=== PATIENT | female | born 1945 | race Two or more races ===

== ENCOUNTER → 2017-03-10 | Outpatient (CLI) | payer OTHER ==
[2015-03-30 11:28] VITALS: BP 140/82
[~2017-03-10] MED LIST: AMOX1TAB61 PO; LISI1TAB3 PO; LISI2.5T PO; METF500T4 PO; PIRO20CA2 PO; SIMV10TA3 PO; SIMV40TA3 PO
--- NOTE | 2017-03-10 10:16 | RAD ---
DATE: March 10, 2017 EXAM: DIGITAL SCREEN BILAT W/CAD HISTORY: Routine screening. COMPARISON: None. Baseline in a 71-year-old. TECHNIQUE: 2D digital CC and MLO views of each breast were obtained. This study was interpreted with the benefit of Computerized Aided Detection (CAD). FINDINGS: The breast parenchyma demonstrates scattered fibroglandular densities, category B. There is no worrisome mass or area of architectural distortion. There are scattered benign-appearing calcifications. Patient has a port on the right, reported history of lymphoma. IMPRESSION: Benign findings. BI-RADS CATEGORY: 2 BENIGN FINDING RECOMMENDED FOLLOW-UP: 12M 12 MONTH FOLLOW-UP PQRS compliance statement: Patient information was entered into a reminder system with a target due date for the next mammogram. Mammography is a sensitive method for finding small breast cancers, but it does not detect them all and is not a substitute for careful clinical examination. A negative mammogram does not negate a clinically suspicious finding and should not result in delay in biopsying a clinically suspicious abnormality. "Our facility is accredited by the [employer] Mammography Program."
== END | disposition home or self-care (01) ==
LOC: MAMMO 08:51
PROVIDERS: ATTEND Family Medicine
DX: Z12.31 Encounter for screening mammogram for malignant neoplasm of breast (principal)
CPT/HCPCS: G0202; 77067

== ENCOUNTER → 2018-03-11 | Outpatient (CLI) | payer OTHER ==
[2015-03-30 11:28] VITALS: BP 140/82
[~2018-03-11] MED LIST changes: +METF500T16 PO; -METF500T4 PO
--- NOTE | 2018-03-11 11:46 | RAD ---
DATE: March 11, 2018 EXAM: MAMMO REYNA SCREENING BILATERAL HISTORY: Screening study. COMPARISON: March 10, 2017 This study was interpreted with the benefit of Computerized Aided Detection (CAD). 2-D digital mammographic views of both breasts were performed in the CC and MLO projections. 3-D digital tomosynthesis images of both breasts were performed in the CC and MLO projections and reviewed on a computer workstation. FINDINGS: Breast Density: SCATTERED The breast parenchyma shows scattered fibroglandular densities. Breast parenchyma level B.. There are no dominant suspicious masses, suspicious microcalcifications or evidence of architectural distortion. IMPRESSION: No mammographic indicators for malignancy BI-RADS CATEGORY: 1 NEGATIVE RECOMMENDED FOLLOW-UP: 12M 12 MONTH FOLLOW-UP PQRS compliance statement: Patient information was entered into a reminder system with a target due date March 12, 2019 for the next mammogram. Mammography is a sensitive method for finding small breast cancers, but it does not detect them all and is not a substitute for careful clinical examination. A negative mammogram does not negate a clinically suspicious finding and should not result in delay in biopsying a clinically suspicious abnormality. "Our facility is accredited by the [employer] Mammography [employer]." The patient's breast density may affect the ability of mammography to detect breast cancer. There are 4 categories of breast density, A, B, C and D. Breast density A means that most of the breast tissue is replaced with adipose tissue and therefore is not dense. Breast density B means that the breast tissue is mildly dense and scattered. Breast density C means that the breast tissue is heterogeneously dense. Breast density D means that the breast tissue is very dense. Breast densities especially C and D may decrease the sensitivity of mammography to detect breast cancer. Therefore, the patient may benefit from 3-D breast mammography (3D breast tomography) as a part of their screening mammogram. Insurance may or may not pay for this additional imaging. The patient's breast density based on today's mammogram is category B.
== END | disposition home or self-care (01) ==
LOC: MAMMO 08:32
PROVIDERS: ATTEND Family Medicine
DX: Z12.31 Encounter for screening mammogram for malignant neoplasm of breast (principal)
CPT/HCPCS: 77063; 77067

== ENCOUNTER → 2018-06-23 | Outpatient (CLI) | payer OTHER ==
[2015-03-30 11:28] VITALS: BP 140/82
--- NOTE | 2018-06-23 12:57 | KCIC ---
EXAM: Dual energy x-ray absorptiometry (DEXA). HISTORY: Postmenopausal female presents for osteoporosis screening. COMPARISON: None. TECHNIQUE: Dual energy x-ray absorptiometry of the lumbar spine and left was performed. Calculation of bone mineral density based on standard deviations above or below the expected young adult normal value (T-score) was completed. FINDINGS: The average bone mineral density in the 1st through 4th lumbar vertebrae is 1.040 g/cmxcm, corresponding with a T-score of -0.1. The average total bone mineral density in the left hip corresponds with a T-score of -0.7. IMPRESSION: Normal bone mineral density. Note: Definitions established by the World Health Organization: 1. Normal: T-score is -1.0 or above. 2. Osteopenia: T-score is between -1.0 and -2.5 . 3. Osteoporosis: T-score is -2.5 or below. Electronically signed by: Peg Zambrano MD (06/23/2018 12:53 PM) [id number]
== END | disposition home or self-care (01) ==
LOC: KCIC DEXA 08:50
PROVIDERS: ATTEND Family Medicine
DX: Z13.820 Encounter for screening for osteoporosis (principal); Z78.0 Asymptomatic menopausal state
CPT/HCPCS: 77080

== ENCOUNTER → 2019-03-11 | Outpatient (CLI) | payer OTHER ==
[2015-03-30 11:28] VITALS: BP 140/82
[~2019-03-11] MED LIST changes: +LISI1TAB23 PO; -LISI1TAB3 PO
--- NOTE | 2019-03-11 10:06 | RAD ---
DATE: 03/11/2019 EXAM: MAMMO REYNA SCREENING BILATERAL HISTORY: Routine screening. Lymphoma. COMPARISON: 03/10/2017, 03/11/2018 mammographic exams This study was interpreted with the benefit of Computerized Aided Detection (CAD). Breast Density: SCATTERED The breast parenchyma shows scattered fibroglandular densities. Breast parenchyma level B. FINDINGS: No suspicious calcifications, masses, or distortion. IMPRESSION: Stable BI-RADS CATEGORY: 1 NEGATIVE RECOMMENDED FOLLOW-UP: 12M 12 MONTH FOLLOW-UP PQRS compliance statement: Patient information was entered into a reminder system with a target due date for the next mammogram. Mammography is a sensitive method for finding small breast cancers, but it does not detect them all and is not a substitute for careful clinical examination. A negative mammogram does not negate a clinically suspicious finding and should not result in delay in biopsying a clinically suspicious abnormality. "Our facility is accredited by the [employer] Mammography Program."
== END | disposition home or self-care (01) ==
LOC: MAMMO 08:08
PROVIDERS: ATTEND Family Medicine
DX: Z12.31 Encounter for screening mammogram for malignant neoplasm of breast (principal)
CPT/HCPCS: 77063; 77067

== ENCOUNTER → 2020-03-13 | Outpatient (CLI) | payer MEDICARE, OTHER ==
[2015-03-30 11:28] VITALS: BP 140/82
[~2020-03-13] MED LIST changes: +SIMV10TA15 PO; -SIMV10TA3 PO; +SIMV40TA18 PO; -SIMV40TA3 PO
--- NOTE | 2020-03-13 16:32 | RAD ---
EXAMINATION: Bilateral screening mammogram, 03/13/2020 8:30 AM CLINICAL INDICATION: 74-year-old woman presenting for screening mammogram. COMPARISON: Screening mammogram 03/11/2018, 03/11/2019 TECHNIQUE: Digital bilateral full-field CC and MLO views, and CC and MLO tomosynthesis views of the breasts were obtained. CAD was utilized. FINDINGS: The breasts contain scattered areas of fibroglandular density. There is a 7 mm asymmetry in the upper left breast, 4.2 cm posterior to the nipple. This has increased in density. No suspicious mass in the right breast. No calcifications or architectural distortion. A port is seen in the right chest wall IMPRESSION: 1. Asymmetry in the upper left breast. Recommend spot compression MLO view, and ultrasound if needed. 2. BI-RADS 0-incomplete. Need additional imaging evaluation. 3. A result and recommendation lateral be sent to the patient. Electronically signed by: Arianna Malcolm MD (03/13/2020 4:30 PM) [id number]
== END ==
LOC: MAMMO 08:07
PROVIDERS: ATTEND Family Medicine
DX: Z12.31 Encounter for screening mammogram for malignant neoplasm of breast (principal)
CPT/HCPCS: 77067

== ENCOUNTER → 2020-04-03 | Outpatient (CLI) | payer MEDICARE ==
[2015-03-30 11:28] VITALS: BP 140/82
--- NOTE | 2020-04-03 14:16 | RAD ---
DATE: 04/03/2020 10:40 AM EXAM: DIGITAL DIAGNOSTIC LT mammogram, and ultrasound BREAST LEFT HISTORY: Screening recall for asymmetry upper left breast seen on 03/13/2020 screening mammogram COMPARISON: Screening mammogram 03/13/2020 Technique: Spot compression views of the left breast in the CC projection in addition to a full-field left ML view. Images reviewed with computer-aided detection. Thereafter, targeted ultrasound of the upper outer left breast was performed anteriorly. Sonographic survey of the left axilla and subareolar breast was also performed. FINDINGS: Breast Density: SCATTERED The breast parenchyma shows scattered fibroglandular densities. Breast parenchyma level B The questioned asymmetry changed configuration in a pattern compatible with benign overlap of fibroglandular tissue. Targeted ultrasound of the upper-outer quadrant left breast revealed no sonographic abnormality. Glove Cuffer images at the 2:00 position were obtained. IMPRESSION: No evidence of malignancy in the upper outer quadrant left breast. BI-RADS CATEGORY: 1 NEGATIVE RECOMMENDED FOLLOW-UP: 12M 12 MONTH FOLLOW-UP Annual screening mammography is recommended, unless clinically indicated sooner based on symptoms or change in physical exam. PQRS compliance statement: Patient information was entered into a reminder system with a target due date for the next mammogram. Mammography is a sensitive method for finding small breast cancers, but it does not detect them all and is not a substitute for careful clinical examination. A negative mammogram does not negate a clinically suspicious finding and should not result in delay in biopsying a clinically suspicious abnormality. "Our facility is accredited by the [employer] Mammography [employer]."
== END ==
LOC: MAMMO 10:34
PROVIDERS: ATTEND Family Medicine
DX: R92.2 Inconclusive mammogram (principal)
CPT/HCPCS: 76641; 77065